=== PATIENT | male | born 1990 | race Caucasian/White ===

== ENCOUNTER 2017-09-06 23:59 | Emergency (ER) | payer OTHER ==
[~2017-09-06] VITALS: Ht 172.7 cm; Wt 65.6 kg
[~2017-09-06 23:59] MED LIST: Z.0.NO CURRENT MEDS
[2017-09-07 00:02] VITALS: BP 152/84; PULSE 71; RESP 20; TEMP 98.2; O2SAT 99
[2017-09-07] MEDS ORDERED: CLAR10CA3 PO (00:08)
[2017-09-07] MEDS ORDERED: DIPH25CA PO (00:08)
[2017-09-07] MEDS ORDERED: FAMOTIDINE 20 MG TAB PO ONE (01:00)
[2017-09-07] MEDS ORDERED: predniSONE 50 MG TAB PO ONE (01:00)
--- NOTE | 2017-09-07 07:31 | PD ---
HPI Chief Complaint: ENT Complaint Time Seen by Provider: 00:57 Travel History International Travel<30 days: No Contact w/Intl Traveler<30days: No Traveled to known affect area: No History of Present Illness HPI 27-year-old male presents to the emergency department for complaint of throat irritation and sensation of tightness. History of seasonal environmental allergies takes Claritin daily. Patient denies any lip or tongue swelling and has had no stridor or hoarseness. Patient's had no shortness of breath or wheezing. Patient denies known history of reactive airways disease or asthma. Patient has not noticed any skin rash or pruritus or urticaria. Patient states he took Benadryl at 1130 with some improvement of symptoms but due to persistence of discomfort decided come to the emergency room. Patient's had no fever or chills. Patient had no drooling. Patient thinks that he had a similar less intense episode on Friday after drinking grape juice but has not had any brim shaper use today. Patient denies other concerns or complaints. PFSH Past Medical History Narrative Medical Environmental seasonal allergies no tobacco use nursing notes reviewed Tetanus Vaccination: Unknown Influenza Vaccination: No Past Surgical History Surgical History: No Previous Surgery Social History Alcohol Use: No Tobacco Use: No Substance Use: No Allergies-Medications (Allergen,Severity, Reaction): Coded Allergies: No Known Allergies (Verified Adverse Reaction, Unknown, 09/07/17) Reported Meds & Prescriptions Reported Meds & Active Scripts Active Reported Diphenhydramine (Diphenhydramine HCl) 25 Mg Cap 25 Mg PO Q6H PRN Claritin (Loratadine) 10 Mg Cap 10 Mg PO DAILY Review of Systems Except as stated in HPI: all other systems reviewed are Neg Physical Exam Narrative GENERAL: Well-developed nourished male no acute distress no respiratory distress no stridor no hoarseness no urticaria. SKIN: Warm and dry. HEAD: Normocephalic. EYES: No scleral icterus. No injection or drainage. ENT: Mucous membranes moist airways patent. NECK: Supple, trachea midline. No JVD or lymphadenopathy. CARDIOVASCULAR: Regular rate and rhythm without murmurs, gallops, or rubs. RESPIRATORY: Breath sounds equal bilaterally. No accessory muscle use. GASTROINTESTINAL: Abdomen soft, non-tender, nondistended. MUSCULOSKELETAL: No cyanosis, or edema. BACK: Nontender without obvious deformity. No CVA tenderness. Data Data Last Documented VS Vital Signs Date Time Temp Pulse Resp B/P (MAP) Pulse Ox O2 Delivery O2 Flow Rate FiO2 09/07/17 00:02 98.2 71 20 152/84 (106) 99 Orders Orders Prednisone (Deltasone) (09/07/17 01:00) Famotidine (Pepcid) (09/07/17 01:00) MDM Medical Decision Making Medical Screen Exam Complete: Yes Emergency Medical Condition: Yes Medical Record Reviewed: Yes Differential Diagnosis Adverse food reaction allergic reaction angioedema or urticaria anaphylaxis viral syndrome pharyngitis seasonal allergy Narrative Course Patient with benign exam complains of irritation of throat no evidence for induration erythema or exudative change patient given a one-time dose of Pepcid has had taken Benadryl prior to arrival to the emergency department and prednisone for possible atypical allergic type reaction or adverse reaction to food as he identifies exposure to grape juice precipitating a similar type event. Patient clinically improved after Pepcid and prednisone well prescribed Medrol Dosepak encourage him to use [id number] Pepcid or Zantac and continue to use Benadryl suspect probable viral illness or pharyngitis but due to possibility of allergic reaction or atypical angioedema will discharge his prescription for Medrol Dosepak. No indication for epinephrine at this time. Diagnosis Primary Impression: Pharyngitis Referrals: Primary Care Physician 1 day Patient Instructions: General Instructions, Methylprednisolone (By mouth), Pharyngitis (ED) Departure Forms: Tests/Procedures Additional Instructions: Increase fluid hydration Continue Benadryl per package directions Zantac 150 twice daily or Pepcid per package directions Complete course of prescription Medrol Dosepak Follow-up with your primary care provider Return to the emergency department for any concerns or change in condition Med/Other Pt SpecificInfo: Prescription(s) given (Medrol Dosepak) Disposition: 01 DISCHARGE HOME Condition: Stable Claudia Contreras MD September 07, 2017 07:31
== END 2017-09-07 02:50 | disposition home or self-care (01) ==
LOC: PHED 23:59
DX: J02.9 Acute pharyngitis, unspecified (principal)
CPT/HCPCS: 99283; J7512